=== PATIENT | male | born 1950 | race Caucasian/White ===

== ENCOUNTER 2024-04-23 09:00 | Outpatient (RCR) | payer OTHER, SELFPAY ==
--- NOTE | 2024-04-02 09:31 | OPREHPOC ---
Outpatient Therapy Plan of Care This is a Multidisciplinary Plan of Care that may contain components documented by all disciplines (PT, OT, and ST.) PT Problem 1 PT Problem #1 Knowledge Deficit PT Goal 1 Goal [place] with HEP PT Problem 2 PT Problem #2 Pain PT Goal 1 Goal Report no increased pain with sleeping on R side for 4+ hours to improve quality and quantity of sleep Target Visit 6 PT Problem 3 PT Problem #3 Impaired Range of Motion PT Goal 1 Goal Demonstrate 40 degrees of R hip abduction to reduce capsular limitation with hip mobility Target Visit 8 PT Goal 2 Goal Patient will improve meche Hamstring 90/90 restriction to less than 25 degrees for reduced posterior chain restriction Target Visit 8 PT Problem 4 PT Problem #4 Impaired Strength PT Goal 1 Goal Improve lower abdominal strength to 4/5 to improve lumbar stabilization Target Visit 8 PT Problem 5 PT Problem #5 Impaired Functional Mobil PT Goal 1 Goal Patient will demonstrate ability to perform 20# box lift with proper hip hinge and mechanics for buttermaker functional training Target Visit 8
--- NOTE | 2024-04-02 09:31 | PTOPEVAL1 ---
Assessment and note entered by Haresh Lubin, PT Evaluation Information Assessment Status Evaluation Diagnosis Lumbar Spondylosis ICD-10 Condition Codes (PT) M54.16 Onset January 2024 Subjective Information Reports that most of his pain is in his hip and he thought that is where it was coming from. He spends a lot of time working outside and gardening /landscaping. Has trouble getting on and off the ground. He has a lot of ground to mow and has pain when he finishes with that. He will occasionally have low back pain which is greater on the right side. Denies frequent groin pain. Prefers to sleep on his right side and cannot do that right now. He is not sleeping well. Currently taking Aleve BID Reported Pain Level Pain Score 1: Self Report Assessment PT Clinical Summary Patient presents with lateral hip and R low back pain that appears to be stemming from lumbar spine at this time. Objective assessment indicates that poor mobility is noted on right hip but strength of meche LE in maintained. 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 Plan of Care Interventions Electrical Stimulation,Gait Training,Hot Pack/Cold Pack,Manual Therapy,Neuro Re-education, Therapeutic Activities,Therapeutic Exercise PT Services Indicated Yes Treatment Frequency and 2x/week for 8 visits Duration These treatments will address the objective and functional deficits as defined above. The patient will be advanced safely and appropriately in order for the patient to progress towards his/her prior level of function. Additional exercises will be introduced and as well as a comprehensive home exercise program upon discharge, if needed, ?to ensure carryover of functional gains achieved in the clinic. This treatment plan has been reviewed and agreement upon by the patient.
--- NOTE | 2024-04-23 09:46 | OPREHPOC ---
Outpatient Therapy Plan of Care This is a Multidisciplinary Plan of Care that may contain components documented by all disciplines (PT, OT, and ST.) PT Problem 1 PT Problem #1 Knowledge Deficit PT Goal 1 Goal [place] with HEP Progress Met PT Problem 2 PT Problem #2 Pain PT Goal 1 Goal Report no increased pain with sleeping on R side for 4+ hours to improve quality and quantity of sleep Target Visit 6 Progress Met PT Problem 3 PT Problem #3 Impaired Range of Motion PT Goal 1 Goal Demonstrate 40 degrees of R hip abduction to reduce capsular limitation with hip mobility Target Visit 8 Progress Met PT Goal 2 Goal Patient will improve meche Hamstring 90/90 restriction to less than 25 degrees for reduced posterior chain restriction Target Visit 8 Progress Met PT Problem 4 PT Problem #4 Impaired Strength PT Goal 1 Goal Improve lower abdominal strength to 4/5 to improve lumbar stabilization Target Visit 8 Progress Met PT Problem 5 PT Problem #5 Impaired Functional Mobil PT Goal 1 Goal Patient will demonstrate ability to perform 20# box lift with proper hip hinge and mechanics for care home functional training Target Visit 8 Progress Met
--- NOTE | 2024-04-23 09:46 | PTOPDC ---
Assessment and note entered by Haresh Lubin, PT Evaluation Information Assessment Status Discharge Diagnosis Lumbar Spondylosis ICD-10 Condition Codes (PT) M54.16 Onset January 2024 Subjective Information Reports that overall he is doing well. He feels comfortable with current exercise program and desires discharge at this time. Feels he is independent and overall doing better. He is 80% better. Reported Pain Level Pain Score 0: Self Report Assessment PT Clinical Summary Patient met all goals for therapy and is suitable for discharge to [facility] at this time. No concerns with independence as he has shown compliance and understanding of HEP. Plan of Care PT Services Indicated D/C to HEP
== END 2024-04-23 10:49 | disposition home or self-care (01) ==
LOC: ANHPT 09:00
PROVIDERS: PCP Internal Medicine; Visit Provider Orthopaedic Surgery
DX: M47.816 Spondylosis without myelopathy or radiculopathy, lumbar region (principal)
CPT/HCPCS: 97110; 97140; 97161; 97530